=== PATIENT | female | born 1970 | race Caucasian/White ===

== ENCOUNTER → 2023-09-19 | Outpatient (CLI) | payer BC ==
--- NOTE | 2023-09-22 06:32 | MR ---
EXAMINATION TYPE: MR knee RT wo con DATE OF EXAM: 09/19/2023 COMPARISON: NONE HISTORY: Right knee pain and swelling, Injury by fall. Internal derangement. TECHNIQUE: Multiplanar, multisequence images of the knee is performed without IV contrast. FINDINGS: MEDIAL MENISCUS: Horizontal and oblique increased signal medial meniscus involving posterior horn lik bryn extends to inferior articular surface coronal image 23. LATERAL MENISCUS: Anterior and posterior horns are intact without tear. CRUCIATE LIGAMENTS: The anterior and posterior cruciate ligaments are intact and unremarkable. COLLATERAL LIGAMENTS: The medial collateral ligament and lateral collateral ligament complex are inta ct. Fluid signal surrounds the medial collateral ligament. EXTENSOR MECHANISM: Visualized quadriceps and patellar tendons are intact. EFFUSION: Large size suprapatellar joint effusion. POPLITEAL CYST: Large size popliteal/james cyst sagittal image 13 D2 with some adjacent ill-defined f luid. TRICOMPARTMENT SPACES: Mild to moderate tricompartment joint space loss without significant spurring. CARTILAGE: Some early cartilaginous loss medial tibiofemoral compartment. BONE MARROW SIGNAL: Heterogeneous increased T2 signal medial aspect medial tibial plateau coronal vandana ge 24 for reference. OTHER: No additional significant abnormality is appreciated. IMPRESSION: 1. At least intrasubstance suspected full-thickness tear posterior horn medial meniscus. 2. Mild MCL sprain injury. 3. Large-sized suprapatellar joint effusion. 4. Large size partially leaking popliteal cyst. 5. Mild to moderate tricompartment degenerative changes as detailed above most prominent involving th e medial tibiofemoral compartment.
== END | disposition home or self-care (01) ==
LOC: RADMRIMAIN 15:52
PROVIDERS: ATTEND Family Medicine
DX: S89.91XA Unspecified injury of right lower leg, initial encounter (principal); S83.241A Other tear of medial meniscus, current injury, right knee, initial encounter; M23.91 Unspecified internal derangement of right knee; M25.461 Effusion, right knee; M17.11 Unilateral primary osteoarthritis, right knee

== ENCOUNTER → 2024-01-22 | Outpatient (CLI) | payer BC ==
--- NOTE | 2024-01-22 14:15 | CT ---
EXAMINATION TYPE: CT urogram wo/w con CT DLP: 2686.80 mGycm, Automated exposure control for dose reduction was used. DATE OF EXAM: 01/22/2024 11:27 AM COMPARISON: None CLINICAL INDICATION:Female, 53 years old with history of R31.9 HEMATURIA, UNSPECIFIED; PHH, Hematuria TECHNIQUE: Urogram of the abdomen and pelvis was performed before and after the administration of 100 cc of IV c ontrast Isovue 300 contrast. Delayed imaging was performed. Coronal and sagittal reformats were perfo rmed. One or more CT dose reduction strategies were utilized during this examination. 2D and 3D recon structions are performed to assist visualization of the urinary tract on a separate workstation. FINDINGS: GENITOURINARY: RIGHT KIDNEY AND URETER: No calculi. No hydronephrosis or hydroureter. No renal mass or other lesions . No urothelial lesions: no filling defect, dilation, stricture or wall thickening. LEFT KIDNEY AND URETER: No calculi. No hydronephrosis or hydroureter. No renal mass or other lesions. No urothelial lesions: no filling defect, dilation, stricture or wall thickening. URINARY BLADDER: Not optimally distended. No evidence for calculi. No gross evidence for mass or othe r lesions. REPRODUCTIVE: Uterus is surgically absent. ABDOMEN LIVER: No focal lesion. Park lobe variant. GALLBLADDER AND BILE DUCTS: Unremarkable PANCREAS: Unremarkable. SPLEEN: Unremarkable. ADRENAL GLANDS: Unremarkable. STOMACH AND BOWEL: No focal bowel thickening or stranding inflammatory changes. No evidence of bowel obstruction. PERITONEUM: No evidence of pneumoperitoneum, free fluid, or adenopathy. VASCULATURE: No aortic aneurysm. Pelvic phleboliths. Portal venous system is patent. MUSCULOSKELETAL: No acute osseous abnormalities. Degenerative changes of the pubic symphysis. SOFT TISSUE/ABDOMINAL WALL: Unremarkable. LOWER CHEST: Partial visualization of bilateral breast prosthesis. The visualized lung bases are colleen r.. IMPRESSION: No CT evidence of urolithiasis or renal/urothelial neoplasm.
== END | disposition home or self-care (01) ==
LOC: RADCTMAIN 09:49
PROVIDERS: ATTEND Family Medicine
DX: R31.9 Hematuria, unspecified (principal)
CPT/HCPCS: 74178; 74400; Q9967